=== PATIENT | female | born 1980 | race Caucasian/White ===

== ENCOUNTER 2016-10-07 21:21 | Observation (INO) ==
[2016-10-07] MEDS ORDERED: 0.9 % Sodium Chloride 1,000 ML IVC ONE ×2 (21:48→22:36)
--- NOTE | 2016-10-07 21:53 | Emergency Department Note ---
Disposition Clinical Impression: Abnormal EKG, Pleuritic chest pain, Menorrhagia Syncope Qualifiers: Syncope type: unspecified Qualified Code(s): R55 - Syncope and collapse Disposition: Admitted As Inpatient Condition: Fair Referrals: NONE,PCP [Non-Partnered Physician] - Forms: ED Satisfaction Letter General Adult HPI - General Chief complaint: ED Chest Pain Stated complaint: weakness/chest pain Time Seen by Provider: 10/07/16 21:38 Source: patient Limitations: no limitations Vital Signs Reviewed: Yes - History of Present Illness HPI Narrative: Patient presents with left upper pleuritic (sharp, worse with a deep breath) chest pain that is still present but has decreased in intensity, associated with multiple syncopal episodes over the last few hours. She feels weak. Is currently menstruating, has had heavy periods for the last several months, which is why she says she is on control pills and iron replacement. No symptoms of GI bleeding. No hemoptysis or other abnormal bleeding. No history of similar chest pain in the past. No history of coronary disease. She had a cardiomyopathy that she says was related to her thyroid disease that resolved with her thyroid disease was treated. 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 Has a history of thyroid cancer and a relatively distant past, no recent therapy, has been in remission for several years. No recent travel, trauma or surgery. No lower extremity pain or swelling. No exertional component. She does get dizzy when she sits up. No vomiting or diarrhea, po intake has been normal. Pain Scale: 8 - Related Data Home Medications Medication Instructions Recorded Confirmed Calcitriol [Rocaltrol] 0.25 mcg PO BID 04/27/15 04/27/15 Calcium Carbonate/Vitamin D3 2 tab PO DAILY 04/27/15 04/27/15 [Calcium 500-Vit D3 400 Tablet] Ergocalciferol (VITAMIN D2) 50,000 unit PO QWEEK 04/27/15 04/27/15 [Vitamin D2 (50,000 UNIT)] FLUoxetine HCl [Prozac] 20 mg PO DAILY 04/27/15 04/27/15 Furosemide [Lasix] 20 mg PO DAILY 04/27/15 04/27/15 Levothyroxine [Synthroid] 350 mcg PO DAILY 04/27/15 04/27/15 Previous Rx's Medication Instructions Recorded Meclizine [Antivert] 12.5 mg PO TID PRN #30 tablet 04/28/15 Topiramate [Topiramate ER] 25 mg PO DAILY #14 cap.spr.24 04/28/15 Meclizine [Antivert] 12.5 mg PO TID #30 tablet 12/10/15 HYDROcodone/Acet 5/325 mg [[place] 1 tab PO Q6H PRN #10 tab 07/30/16 5-325 mg] Ondansetron ODT [Zofran ODT] 4 mg SL Q8HR #14 tab.rapdis 07/30/16 Ibuprofen [Motrin] 600 mg PO Q6HR PRN 7 Days 08/01/16 Oxycodone HCl/Acetaminophen 1 each PO Q6HR #8 tablet 08/01/16 [Percocet 5-325 mg Tablet] Cephalexin [Keflex] 500 mg PO Q6HR #40 capsule 08/03/16 Oxycodone HCl/Acetaminophen 1 each PO Q6HR #10 tablet 08/03/16 [Percocet 5-325 mg Tablet] Allergies Allergy/AdvReac Type Severity Reaction Status Date / Time No Known Allergies Allergy Verified 07/31/16 21:59 All systems ED: reviewed and negative except as stated. Past Medical History - Past Medical History Medical history: Reports: cancer, CHF, migraine, thyroid disease, other (No history of DVT or PE) Surgical history: Reports: , thyroidectomy Psychiatric history: Reports: anxiety, depression - Social History Smoking Status: Never smoker Smokeless Tobacco Status: No Alcohol use: Reports: none Drug use: Reports: none Physical Exam - General Limitations: no limitations General appearance: alert - Head Head exam: atraumatic, normocephalic, normal inspection - Eye Eye exam: Present: normal appearance, other (Conjunctiva pink.) - ENT ENT exam: other (Mucous membranes paste E. Dentition poor.) - Neck Neck exam: Present: normal inspection, other (No JVD.) - Chest Chest inspection: Present: normal inspection, symmetric chest wall rise - Respiratory Respiratory exam: Present: normal lung sounds bilaterally. Absent: respiratory distress, wheezes, stridor, accessory muscle use, prolonged expiratory phase - Cardiovascular Cardiovascular exam: Present: normal rhythm (Mildly tachycardic, rate [id number]), normal heart sounds. Absent: systolic murmur, diastolic murmur - Abdominal Exam Abdominal exam: Present: soft, Non-Tender. Absent: distention, guarding - Extremities Exam Extremities exam: Present: normal inspection, other (No erythema, warmth or unilateral leg swelling). Absent: tenderness, calf tenderness - Neurological Exam Neurological exam: Present: alert, CN II-XII intact (Grossly), other (Speech and mental status normal, no focal deficits or lateralizing signs) - Psychiatric Psychiatric exam: Present: normal affect, normal mood - Skin Skin exam: Present: warm, dry, intact. Absent: rash Course Vital Signs Temperature 98.6 F 10/07/16 21:27 Pulse Rate 98 10/07/16 21:27 Respiratory Rate 20 10/07/16 21:27 Blood Pressure 129/87 10/07/16 21:27 O2 Sat by Pulse Oximetry 95 10/07/16 21:27 Temperature 98.6 F 10/07/16 21:27 Pulse Rate 82 10/07/16 23:38 Respiratory Rate 16 10/07/16 23:38 Blood Pressure 148/86 10/07/16 23:38 O2 Sat by Pulse Oximetry 96 10/07/16 23:38 Oxygen Delivery Oxygen Delivery Room Air Medical Decision Making - MDM Narrative Medical decision making narrative: Hemoglobin normal. Clinical suspicion for PE was low but d-dimer significantly elevated so CT scan was ordered which was negative. Troponin negative. TSH is low, likely indicating supratherapeutic Synthroid therapy. Remainder of her thyroid panel is pending, but I do not think this is the source of her symptoms. She has multiple syncopal episodes with abnormal EKG, observation and cardiac monitoring is warranted. Hospitalist contacted for admission. - Lab Data Result diagrams: 10/07/16 21:49 10/07/16 21:49 Lab Results 10/07/16 10/07/16 10/07/16 Range/Units 21:49 21:49 21:49 Hgb 13.4 (11.5-15.4) g/dL Hct 41.4 (35.3-44.9) % PT 11.8 (9.4-12.1) Seconds INR 1.1 D-Dimer 1290 H (0-500) ng/mLFEU Sodium 142 (136-145) mEq/L Potassium 3.2 L (3.5-4.5) mEq/L Chloride 107 (98-109) mEq/L Carbon Dioxide 26 (19-29) mEq/L BUN 12 (7-20) mg/dL Creatinine 1.15 H (0.57-1.11) mg/dL Est GFR ( Amer) > 60 (> 60) Est GFR (Non-Af Amer) 53 L (> 60) BUN/Creatinine Ratio 10 (6-26) Glucose 110 H (70-99) mg/dL Calculated Osmolality 294 (280-300) Calcium 11.7 H (8.6-10.8) mg/dL Troponin I (0-0.03) ng/mL TSH (0.350-4.840) mcIU/mL Free T4 (0.70-1.48) ng/dl Thyroxine (T4) (4.87-11.72) mcg/dL Free T3 (1.71-3.71) pg/mL Total T3 (0.58-1.59) ng/mL 10/07/16 10/07/16 Range/Units 21:49 21:49 Hgb (11.5-15.4) g/dL Hct (35.3-44.9) % PT (9.4-12.1) Seconds INR D-Dimer (0-500) ng/mLFEU Sodium (136-145) mEq/L Potassium (3.5-4.5) mEq/L Chloride (98-109) mEq/L Carbon Dioxide (19-29) mEq/L BUN (7-20) mg/dL Creatinine (0.57-1.11) mg/dL Est GFR ( Amer) (> 60) Est GFR (Non-Af Amer) (> 60) BUN/Creatinine Ratio (6-26) Glucose (70-99) mg/dL Calculated Osmolality (280-300) Calcium (8.6-10.8) mg/dL Troponin I 0.00 (0-0.03) ng/mL TSH 0.027 L (0.350-4.840) mcIU/mL Free T4 1.28 (0.70-1.48) ng/dl Thyroxine (T4) 10.89 (4.87-11.72) mcg/dL Free T3 2.37 (1.71-3.71) pg/mL Total T3 1.05 (0.58-1.59) ng/mL - EKG Data EKG #1 EKG shows normal: sinus rhythm (Rate 98, normal intervals and QRS duration. No signs of right heart strain. Nonspecific T-wave flattening is present.)
[2016-10-07 21:58] LABS: Hematocrit 41.4 % (35.3-44.9); Hemoglobin 13.4 g/dL (11.5-15.4)
[2016-10-07 22:03] LABS: INR 1.1; Prothrombin Time 11.8 Seconds (9.4-12.1)
[2016-10-07 22:13] LABS: BUN/Creatinine Ratio 10 (6-26); Blood Urea Nitrogen 12 mg/dL (7-20); Calcium 11.7 mg/dL (8.6-10.8); Carbon Dioxide 26 mEq/L (19-29); Chloride 107 mEq/L (98-109); Glucose 110 mg/dL (70-99); Osmolality,Calculated 294 (280-300); Potassium 3.2 mEq/L (3.5-4.5); Sodium 142 mEq/L (136-145); eGFR For African Americans > 60 (> 60); eGFR For Non-African Americans 53 (> 60)
[2016-10-07 22:35] LABS: Thyroid Stimulating Hormone 0.027 mcIU/mL (0.350-4.840)
[2016-10-07 23:56] LABS: Triiodothyronine (T3) Free 2.37 pg/mL (1.71-3.71); Triiodothyronine (T3) Total 1.05 ng/mL (0.58-1.59)
[2016-10-08] MEDS ORDERED: Ondansetron 4 MG/2 ML VIAL IVP PRN (01:17)
[2016-10-08] MEDS ORDERED: Naloxone 0.4 MG/ML INJ IVP PRN (01:17)
[2016-10-08] MEDS ORDERED: Acetaminophen 325 MG TABLET PO PRN (01:17)
--- NOTE | 2016-10-08 01:21 | Internal Med History&Physical ---
<Jose Armando Marmolejo - Last Filed: 10/08/16 02:38> Date of Encounter: 10/08/16 Time of Encounter: 00:30 Assessment and Plan (1) Syncope Current visit: Yes Status: Acute - Differential include vasovagal, orthostatic hypotension, medications ( including drug), cardiogenic such as arrhythmia, significant valvular dysfunction, CT, PE (unlikely given negative CTA chest) - Echo from 07/26/16 found LVEF 55% with mild LV diastolic dysfunction and mild aortic regurgitation. - Will check orthostatic vital signs and UDS. - Closely monitor with telemetry and trend troponin. - Given reported recent head trauma from syncope, will also obtain CT head. - Continue hydration with IV fluid. Qualifiers: Syncope type: unspecified Qualified Code(s): R55 - Syncope and collapse (2) SAL (acute kidney injury) Current visit: Yes Status: Acute - SCr 1.15 on admission, which is elevated compared to 0.81 on 08/03/16. - Maybe secondary to hypovolemia given patient reports decreased oral intake. - Continue rehydration with IV fluid. - Avoid nephrotoxin. - Continue to monitor renal function and electrolytes. (3) History of thyroid cancer Current visit: No Status: Chronic - History of papillary thyroid carcinoma s/p throidectomy. - On Synthroid at home. Likely supratherapeutic given low TSH. (4) Hypokalemia Current visit: Yes Status: Acute - K 3.2 on admission. - Will give KCl 40 meq x1. - Also check Mg. - Continue to monitor. (5) Pleuritic chest pain Current visit: Yes Status: Acute - Most likely musculoskeletal given it's pleuritic and reproducible on palpation. - Doubt CT given negative troponin and no significant ischemic change on EKG. - CTA chest negative for PE. - Tylenol prn pain. Internal Medicine - H&P: HPI Chief complaint: Syncope Admitted From: Emergency Dept Plans for Post Hospital Care: Home History of present illness: Ms. Machuca is a 36 year old female with history of papillary thyroid carcinoma s /p thyroidectomy and history of thyroid-associated non-ischemic cardiomyopathy ( per patient, that had been cleared by Dr. Gomez of [facility] 2 years ago) . Patient presented to [facility] ED after having 3 episodes of syncopes within 1/2 hours. Patient reports having nausea and worsening dizziness described as room spinning prior to syncopal episodes. Those occurred mostly when she was sitting. Patient denies vision change, chest pain or palpitation prior to syncopal episodes. Patient does report worsening tinnitus recently but denies decreased hearing. Patient also reports headache and recalls hitting the back of her head when she had a syncopal episode on 10/06/16. Patient denies numbness/ tingling, focal weakness, fever, chills. Patient also complains of left upper pleuritic chest pain and shortness of breath but no cough. Patient also admits reduced oral intake recently. Patient was noted to have elevated d-dimer (1290) in ED but CTA chest found no evidence of PE. Patient received 2L of IV NS in ED. Past Med Surg Social Fam HX - Past Medical History Medical history: cancer, CHF, migraine, thyroid disease, other (No history of DVT or PE) Psychiatric history: anxiety, depression - Past Surgical History Surgical History: , thyroidectomy - Social History Smoking Status: Never smoker Smokeless Tobacco Status: No Alcohol use: none Drug use: none - Family History Mother Living Status: Hx Family Respiratory Disorders: Yes Father Name: Andrew Marcial Age: 60 Living Status: Still Living Hx Family Cardiac Disorders: Yes (HTN, possible CT) Hx Family Respiratory Disorders: No Hx Family Cancer: No Hx Family GI Disorders: No Hx Family Genitourinary Disorders: No Hx Family Endocrine Disorder: Yes (Possible DM) Hx Family Musculoskeletal Disorders: No Hx Family Neuromuscular Disorders: No Hx Family Neurologic Disorders: No Hx Family HEENT Disorders: No Hx Family Autoimmune Disorders: No Hx Family Reproductive Disorders: No Hx Family Psychosocial Disorders: No Hx Family Medical Disorders: No Internal Medicine - H&P: Meds Calcitriol [Rocaltrol] 0.25 mcg PO BID 04/27/15 [History] Calcium Carbonate/Vitamin D3 [Calcium 500-Vit D3 400 Tablet] 2 tab PO DAILY [History] Ergocalciferol (VITAMIN D2) [Vitamin D2 (50,000 UNIT)] 50,000 unit PO 2XW [History] FLUoxetine HCl [Prozac] 20 mg PO DAILY 04/27/15 [History] Levothyroxine [Synthroid] 350 mcg PO DAILY 04/27/15 [History] Ibuprofen [Motrin] 600 mg PO Q6HR PRN 7 Days 08/01/16 [Rx] FLUoxetine HCl [PROzac] 20 mg PO DAILY 10/08/16 [History] Ferrous Sulfate [Iron] 325 mg PO QMWF 10/08/16 [History] Norgestimate-Ethinyl Estradiol [Sprintec 28 Day Tablet] 1 each PO 10/08/16 [ History] Topiramate [Topiramate ER] 25 mg PO BID 10/08/16 [History] Wellbutrin 1 tab PO DAILY 10/08/16 [History] diazePAM [Valium] 1 tab PO HS 10/08/16 [History] Allergies No Known Allergies Allergy (Verified 07/31/16 21:59) All Systems PM: A 10-system review of systems was performed and is negative for pertinent findings except as documented above in the HPI. - Constitutional Constitutional: anorexia, fatigue, no chills, no fever(s) - EENT Eyes: no change in vision Ears: tinnitus, no decreased hearing Nose, mouth and throat: no dysphagia, no odynophagia - Cardiovascular Cardiovascular ROS IM: syncope, no edema, no palpitations - Respiratory Respiratory: pain on inspiration, no cough, no hemoptysis - Gastrointestinal Gastrointestinal: constipation, nausea, no hematochezia, no melena, no vomiting - Genitourinary Genitourinary: no difficulty urinating, no dysuria, no hematuria - Musculoskeletal Musculoskeletal ROS IM: no arthralgias, no myalgias - Integumentary Integumentary IM: no pruritus, no rash - Neurological Neurological ROS: no focal weakness, no numbness, no tingling - Hematologic/Lymphatic Hematologic/Lymphatic: no easy bleeding, no easy bruising - Constitutional Vitals: Temp Pulse Resp BP Pulse Ox 98.2 F 85 16 141/84 99 10/08/16 00:45 10/08/16 00:45 10/08/16 00:45 10/08/16 00:45 10/08/16 00:45 General appearance: Present: cooperative, A&O X 3, no acute distress, answers questions appropriately - Head Head exam: Present: atraumatic, normocephalic - Eye Eye exam: Present: EOMI, PERRL, conjuntiva pink, sclera anicteric - Neck Neck exam general surgery: Present: supple, trachea midline. Absent: lymphadenopathy - Respiratory Respiratory exam: Present: chest wall tenderness (left upper chest pain reproducible on palpation. ), decreased breath sounds. Absent: accessory muscle use, rales, rhonchi, wheezes - Cardiovascular Cardiovascular exam: Present: RRR, +S1, +S2. Absent: diastolic murmur, gallop, rubs, systolic murmur - GI/Abdominal GI/Abdominal exam: Present: normal bowel sounds, soft, tenderness (Mild bilateral lower quadrants), no peritoneal signs. Absent: distended - Extremities Exam Extremities exam: Present: warm, radial pulses palpable and symetrical. Absent : calf tenderness, cyanotic - Neurological Exam Neurological exam: Present: CN II-XII intact, oriented X3, no focal deficits. Absent: pronater drift, facial droop, speech deficit - Skin Skin exam: Present: dry, intact, warm Internal Med - H&P Results - Labs CBC & Chem 7: 10/07/16 21:49 10/07/16 21:49 <Damien Restrepo - Last Filed: 10/08/16 06:06> Date of Encounter: 10/08/16 Internal Medicine - H&P: HPI History of present illness: Ms. Machuca is a 36 year old female All Systems PM: A 10-system review of systems was performed and is negative for pertinent findings except as documented above in the HPI. - Constitutional Vitals: Temp Pulse Resp BP Pulse Ox 98.2 F 90 18 130/85 95 10/08/16 02:54 10/08/16 02:54 10/08/16 02:54 10/08/16 02:54 10/08/16 02:54 Internal Med - H&P Results - Labs CBC & Chem 7: 10/08/16 03:13 10/08/16 03:13 Labs: Short CBC 10/08/16 Range/Units 03:13 WBC 12.5 H (4.3-11.1) K/mcL Hgb 13.2 (11.5-15.4) g/dL Hct 40.4 (35.3-44.9) % Plt Count 316 (140-400) K/mcL BMP 10/08/16 03:13 Sodium 141 Potassium 3.0 L Chloride 109 Carbon Dioxide 24 BUN 14 Creatinine 1.09 Glucose 119 H Calcium 10.8 Cardiac Enzymes 10/08/16 Range/Units 03:13 Troponin I 0.00 (0-0.03) ng/mL - Attending Attestation I examined this patient and my medical decision-making was reviewed with the Resident Physician, Dr. Jose Armando Marmolejo. I agree with the documented findings, disposition and treatment plan as described except to the extent set forth below. I have independently obtained history and examined the patient and my findings are summarized below: Patient presented with multiple episodes of syncope. On exam she is in no acute distress. Heart is regular. Lungs are clear. EKG shows sinus tachycardia with nonspecific T-wave changes. Plan: Heart monitor. Trend troponin. Obtain echocardiogram. IV fluids for dehydration.
[2016-10-08] MEDS ORDERED: 0.9 % Sodium Chloride 1,000 ML IVC SCH (02:00)
[2016-10-08 03:24] LABS: Hematocrit 40.4 % (35.3-44.9); Hemoglobin 13.2 g/dL (11.5-15.4); Mean Corpuscular HGB Conc 32.7 g/dL (31.6-35.5); Mean Corpuscular Hemoglobin 27.8 pg (28.0-33.3); Mean Corpuscular Volume 85.1 fL (83.0-100.0); Mean Platelet Volume 11.7 fL (9.4-12.4); Platelet Count 316 K/mcL (140-400); Red Blood Count 4.75 M/mcL (3.82-4.97); Red Cell Distribution Width 15.9 % (11.5-14.5)
[2016-10-08 03:41] LABS: BUN/Creatinine Ratio 13 (6-26); Blood Urea Nitrogen 14 mg/dL (7-20); Calcium 10.8 mg/dL (8.6-10.8); Carbon Dioxide 24 mEq/L (19-29); Chloride 109 mEq/L (98-109); Glucose 119 mg/dL (70-99); Magnesium 1.8 mg/dL (1.6-2.6); Osmolality,Calculated 294 (280-300); Sodium 141 mEq/L (136-145); eGFR For African Americans > 60 (> 60); eGFR For Non-African Americans 56 (> 60)
[2016-10-08] MEDS ORDERED: WELLBUTRIN PO SCH (09:00)
--- NOTE | 2016-10-08 09:15 | Electrocardiograph Report ---
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
[2016-10-08] MEDS: FLUoxetine 20 MG CAPSULE PO SCH (09:38)
[2016-10-08] MEDS: Topiramate 25 MG TABLET PO SCH ×2 (09:38→21:02)
[2016-10-08] MEDS: BuPROPion SR (12 HR) 100 MG TABLET PO SCH ×2 (10:30→21:02)
[2016-10-08 10:47] LABS: Bilirubin,Urine Negative (Negative); Blood,Urine Trace (Negative); Clarity,Urine Cloudy (Clear); Color,Urine Yellow (Yellow); Glucose,Urine (UA) Normal (Normal); Ketones,Urine Negative (Negative); Leukocyte Esterase,Urine Negative (Negative); Nitrite,Urine Negative (Negative); PH,Urine 6.5 pH Units (5.0-8.0); Protein,Urine Negative (Neg-Trace); Specific Gravity,Urine 1.024 (1.010-1.025); Urobilinogen,Urine Normal (Normal)
[2016-10-08 11:58] LABS: Barbiturate Screen,Urine Negative ng/mL (Cutoff=200); Benzodiazepines Screen,Urine Positive ng/mL (Cutoff=200); Cannabinoid Screen,Urine Negative ng/mL (Cutoff = 50); Cocaine Screen,Urine Negative ng/mL (Cutoff= 300); Opiate Screen,Urine Negative ng/mL (Cutoff=300); Phencyclidine Screen,Urine Negative ng/mL (Cutoff=25)
[2016-10-08 12:01] LABS: Amphetamine Screen,Urine Negative ng/mL (Cutoff=1000)
--- NOTE | 2016-10-08 14:51 | Event Note ---
Date of Encounter: 10/08/16 Time of Encounter: 10:50 Patient was seen and assessed at 10:50 AM. and service dog were at bedside. Patient reports four syncopal episodes over the last 2 days.She states she had one syncopal episode 2 days ago, where she fell and hit her head. Has been says she was unconscious for about 30 seconds and that he "brought her back with a sternal rub." For this episode, patient was walking to her bedroom, luckily with the assistance of her said she did not feel well. She reports 3 syncopal episodes while seated yesterday. She said she just did not feel well all day. Patient denies chest pain, palpitations, shortness of breath, dizziness at this time. She said at the time of the event she had shortness of breath, the room was spinning, she was lightheaded and after the episodes she felt as if her heart was racing. She denies palpitations prior to events. She denies chest pain, nausea, vomiting, diaphoresis at time of events. She denies headaches or vision changes. She has had none of these events since arrival. Patient is alert and oriented 3, her speech is clear. She has no anterior or posterior cervical adenopathy, her neck is supple and nontender. S1-S2 is heard , RRR, no gallops, clicks, murmurs. Lung sounds are clear anteriorly and posteriorly. Abdomen soft, nontender, bowel sounds present. There is no peripheral edema. Patient is able to ambulate in the hallway with her service dog. Patient states that when her TSH is low, she goes into congestive heart failure. I draw a BNP today, it is less than 10. Patient had an elevated d- dimer, chest CT was negative for PE. Is evidence of chronic granulomatous disease, with nonspecific mosaic attenuation of the lungs. Chest x-ray was negative for any acute cardiopulmonary abnormality. EKG was sinus rhythm with ventricular rate of 98, OK interval 165, QRS is 98, QTC 402. Patient is chest pain-free, she denies ever having chest pain. Echocardiogram in Jul, 2016 shows LVEF of 55% with normal systolic function. Evidence of mild diastolic dysfunction with mild AR and no pulmonary hypertension. Patient had a limited echo in January,. He remains basically unchanged. Patient does have mildly elevated white count at 12.5. H&H are within normal limits. Again, the d-dimer was 1290. Potassium is 3.2 on admission, 3.0 this morning. She has been given potassium supplementation by mouth. On admission creatinine was 1.15, it has returned to normal, GFR has improved to 56 from 53. Urine is negative other than a trace of blood. Drug screen positive for benzos. Patient takes Valium at home. It has been held here by admitting physician. Due to patient's report of falling and hitting her head, she had a head CT done that showed no acute intracranial abnormality. I will keep patient overnight and have ordered carotids. Patient has had no syncopal episodes since arrival. She is a patient of Dr. Gomez, however she is not seen him for at least 2 years. We will consider an event monitor on discharge if other tests are negative.
--- NOTE | 2016-10-08 21:55 | Carotid Imaging Report ---
Carotid Duplex Patient Name:Maye Machuca Order Number:[id number] Procedure Date:10/08/2016 Date:1980Age:36 yrs Gender:Female Rt.BP:121 / 75 mmHgHeart Rate: Location:[facility] Room #: 3B31 Sales Planner:aSdie Lilly, RDCS Referring MD:Hyacinth Donahue RN X RAY threshing operator:Diana Sotelo DO Reading MD:Rommel Almaguer MD , FACS Primary Indications:Syncope and collapse Impressions: Findings: Bilateral carotid systems are essentially normal. Findings Carotid Duplex: Santiago scale imaging combined with Doppler flow analysis suggests normal findings bilaterally. Right: The right proximal common carotid artery has a PSV of 78 cm/s and a EDV of 13 cm/s. The right mid common carotid artery has a PSV of 100 cm/s and a EDV of 21 cm/s. The right distal common carotid artery has a PSV of 101 cm/s and a EDV of 23 cm/s. The right bifurcation has a PSV of 82 cm/s and a EDV of 20 cm/s. The right proximal internal carotid artery has a PSV of 82 cm/s and a EDV of 22 cm/s. The right mid internal carotid artery has a PSV of 80 cm/s and a EDV of 21 cm/s. The right distal internal carotid artery has a PSV of 65 cm/s and a EDV of 18 cm/s. The right eca has a PSV of 121 cm/s and a EDV of 14 cm/s. The right vertebral artery has a PSV of 57 cm/s and a EDV of 18 cm/s. There is antegrade spectral Doppler flow patterns. Left: The left proximal common carotid artery has a PSV of 118 cm/s and a EDV of 23 cm/s. The left mid common carotid artery has a PSV of 106 cm/s and a EDV of 25 cm/s. The left distal common carotid artery has a PSV of 80 cm/s and a EDV of 24 cm/s. The left bifurcation has a PSV of 61 cm/s and a EDV of 17 cm/s. The left proximal internal carotid artery has a PSV of 79 cm/s and a EDV of 17 cm/s. The left mid internal carotid artery has a PSV of 51 cm/s and a EDV of 23 cm/s. The left distal internal carotid artery has a PSV of 70 cm/s and a EDV of 32 cm/s. The left eca has a PSV of 117 cm/s and a EDV of 15 cm/s. The left vertebral artery has a PSV of 64 cm/s and a EDV of 20 cm/s. There is antegrade spectral Doppler flow patterns. Prior Study: No prior study available for comparison. Carotid Results Right PSV EDV Assessment ECA 121 14 Vertebral Artery 57 18 Antegrade Flow Proximal CCA 78 13 Mid CCA 100 21 Distal CCA 101 23 Bifurcation 82 20 Proximal ICA 82 22 Mid ICA 80 21 Distal ICA 65 18 Left PSV EDV Assessment Proximal CCA 118 23 Mid CCA 106 25 Distal CCA 80 24 Bifurcation 61 17 Proximal ICA 79 17 Mid ICA 51 23 Distal ICA 70 32 ECA 117 15 Vertebral Artery 64 20 Antegrade Flow Ratio's Right ICA/CCA Ratio: 0.82 ICA/CCA Values: 82/100 Left ICA/CCA Ratio: 1.54 ICA/CCA Values: 79/51 Updated by Rommel Almaguer MD, FACS on 10/08/2016 9:50:39 PM Rommel Almaguer MD electronically signed on 10/08/2016 9:51:09 PM with status of Final
[2016-10-09 04:21] LABS: Basophils # 0.1 K/mcL (0.0-0.2); Basophils % 0.4 %; Eosinophils # 0.4 K/mcL (0.0-0.6); Eosinophils % 3.1 %; Hematocrit 36.9 % (35.3-44.9); Immature Granulocytes % 0.3 % (0-4); Lymphocytes # 3.1 K/mcL (0.6-4.6); Lymphocytes % 27.4 %; Mean Corpuscular HGB Conc 31.2 g/dL (31.6-35.5); Mean Corpuscular Hemoglobin 26.7 pg (28.0-33.3); Mean Corpuscular Volume 85.8 fL (83.0-100.0); Mean Platelet Volume 11.2 fL (9.4-12.4); Monocytes # 0.8 K/mcL (0.0-1.3); Monocytes % 6.8 %; Platelet Count 290 K/mcL (140-400); Red Cell Distribution Width 15.9 % (11.5-14.5)
[2016-10-09 04:22] LABS: Hemoglobin 11.5 g/dL (11.5-15.4)
[2016-10-09 04:41] LABS: BUN/Creatinine Ratio 13 (6-26); Blood Urea Nitrogen 12 mg/dL (7-20); Carbon Dioxide 24 mEq/L (19-29); Chloride 112 mEq/L (98-109); Glucose 103 mg/dL (70-99); Osmolality,Calculated 296 (280-300); Potassium 4.1 mEq/L (3.5-4.5); Sodium 143 mEq/L (136-145); eGFR For African Americans > 60 (> 60); eGFR For Non-African Americans > 60 (> 60)
[2016-10-09 07:48] VITALS: BP 166/67
--- NOTE | 2016-10-09 08:36 | Discharge Summary ---
Date of Encounter: 10/09/16 Time of Encounter: 08:25 - Discharge Diagnosis (1) Syncope Priority: Primary Status: Acute Comments: Pt reports 4 syncopal episodes prior to arrival. She has had none since. She reports that the first one was while walking, she fell and hit her head. The other 3 episodes were while seated. She states that she felt like her heart was racing after episodes. All testing to date has been negative. Carotids done last evening were normal. Head CT and chest CTA both negative for acute findings. Troponins were negative. TSH is low and pt states that her PCP, Dr. Sotelo, manages all of her doseage changes. Prior echo from July showed preserved function with mild LV dysfunction and mild AR. Most likely due to dehydration, hypovolemia, rapid position change. Pt will be instructed to hydrate and change positions slowly and she will have a follow up appointment with PCP on 10/15/16. She has been hydrated with IV fluids and has had no subsequent episodes. I am ordering a holter monitor with results to PCP. Head CT 10/08/16 08:00 IMPRESSION: No acute intracranial abnormality. D/ / Timmy Irizarry MD / Timmy Irizarry MD Interpreting Provider: Timmy Irizarry MD Qualifiers: Syncope type: unspecified Qualified Code(s): R55 - Syncope and collapse (2) History of thyroid cancer Priority: Secondary Status: Chronic Comments: Pt has history of thyroid carcinoma s/p thyroidectomy. TSH is low. Pt will see Dr. Sotelo on 10/15 and will discuss doseage adjustment. (3) Pleuritic chest pain Priority: Secondary Status: Resolved Comments: Resolved. Pt denies any chest pain today. Chest X-Ray 10/07/16 21:26 IMPRESSION: No acute cardiopulmonary abnormality. D/ / Misbah Quintanilla MD / Misbah Quintanilla MD Interpreting Provider: Misbah Quintanilla MD Chest CTA 10/07/16 22:35 IMPRESSION: No PE identified. Evidence of chronic granulomatous disease. Nonspecific mosaic attenuation of the lungs D/ / Ramses Zhang MD / Ramses Zhang MD Interpreting Provider: Ramses Zhang MD (4) SAL (acute kidney injury) Priority: Secondary Status: Resolved Comments: Renal function has returned to normal. (5) DVT prophylaxis Priority: Secondary Status: Acute Comments: Pt is ambulatory in room. Observation status. (6) Morbid obesity with BMI of 40.0-44.9, adult Priority: Secondary Status: Chronic Comments: Chronic. Lifestyle changes - Discharge Medications Home Medications: Calcitriol [Rocaltrol] 0.5 mcg PO BID 04/27/15 [History] Ergocalciferol (VITAMIN D2) [Vitamin D2 (50,000 UNIT)] 50,000 unit PO 2XW [History] Levothyroxine [Synthroid] 300 mcg PO DAILY 04/27/15 [History] Ibuprofen [Motrin] 600 mg PO Q6HR PRN 7 Days 08/01/16 [Rx] BuPROPion SR (12 HR) [Wellbutrin SR] 100 mg PO BID 10/08/16 [History] Calcium Carbonate [Calcium] 1,000 mg PO BID 10/08/16 [History] FLUoxetine HCl [Prozac] 20 mg PO DAILY 10/08/16 [History] Ferrous Sulfate [Iron] 325 mg PO QMWF 10/08/16 [History] Norgestrel-Ethinyl Estradiol [Xxc-Qdxvpilb-81 Tablet] 1 tab PO DAILY 10/08/16 [ History] Pnv with Ca,No.72/Iron/FA [Pnv Plus Multivit Tab] 1 tab PO DAILY [History] Topiramate [Topiramate ER] 25 mg PO BID 10/08/16 [History] diazePAM [Valium] 2 tab PO BID 10/08/16 [History] Allergies/Adverse Reactions: Allergies No Known Allergies Allergy (Verified 07/31/16 21:59) Procedures/tests Complete & Pending: Procedures Performed prior 72 hours Category Date Time Status CT head/brain wo con [CT] Routine Cat Scan 10/08/16 08:00 Completed EV carotid duplex imaging BI Routine Y 10/08/16 14:19 Completed Date of admission: 10/08/16 00:13 Primary care physician: Earl Shoemaker Discharging clinician: Hyacinth Donahue Anticipated date of discharge: 10/09/16 - Patient Status Disposition: Home, Self-Care Condition: Good Functional capacity at discharge: independent ambulation Overall status at discharge: patient is back to baseline - Discharge Instructions Follow Up With: Diana Sotelo DO [Primary Care Provider] - Additional Instructions: Follow up with Dr. Sotelo on October 15 as scheduled. Holter monitor results will go to Dr. Sotelo when they are complete. Return to your normal activities as you feel well enough to do so. Make sure that you are drinking plenty of fluids and changing positions slowly. Take your medications as you normally would. Return to the ER for any other problems or concerns or if your symptoms return or worsen. - Diet and Activity Activity: increase activity as tolerated Diet: advance to your usual diet Hospital course: Ms. Machuca is a 36 year old female presents with her service dog with past medical history of migraines, nonischemic cardiomyopathy, history of thyroid cancer, hypoparathyroidism, morbid obesity who presented to the emergency department and was admitted on October 08. She presented with poor syncopal episodes over 2 days. One while walking when she fell and hit her head. The next day 3 while seated. Most likely orthostatic hypotension due to decreased fluid intake and evidence of SAL on admission. Patient reports she was unconscious for about 30 seconds and was arousable to sternal rub by her . When she was walking, she was with her who is helping her bed since she was not feeling well. She denies chest pain, palpitations, shortness of breath, dizziness during her stay. At the time in the event she had shortness of breath, the room was spinning, she was lightheaded, and after the episode she felt like her heart was racing. She denies chest pain, dizziness, or palpitations prior to the event. She denies nausea, vomiting, diaphoresis at the time of the event as well. She denies headache or vision changes and has had none since arrival. Her EKG on admission was sinus rhythm with a rate of 98, DC interval 165, QRS 98 , QTc 42. She was chest free and remained chest pain-free. She tells me that she did not ever have chest pain. Echocardiogram in Jul, 2016 shows LVEF of 55 % with normal systolic function. There is evidence of mild diastolic dysfunction with mild AR and no pulmonary hypertension. She had an echocardiogram in January, was essentially the same. Patient had mild leukocytosis during admission, white count has decreased today and is most likely reactive and is declining. She had an elevated d-dimer of 1290 on arrival, chest CTA was negative for PE. Potassium was 3.2 on admission and has resolved with by mouth potassium supplementation. Patient had mild SAL on arrival with a creatinine of 1.15, renal function has returned to within normal limits. Her urine was negative other than a trace of blood. Her drug screen was positive for benzodiazepines which may be a contributory factor to her syncope with hypovolemia. Her head CT without contrast that was done due to possible head injury after fall, showed no acute intracranial abnormality. Carotid Dopplers were also essentially normal. Patient is status post thyroidectomy due to thyroid carcinoma. Her TSH is low and she states that her primary care physician regulates all of her thyroid medication. Patient is going have a Holter monitor placed for 48 hours prior to discharge. Results will go to her primary care physician. We have scheduled a follow-up appointment for October 15 with her primary care physician, Dr. Sotelo. Vital signs are stable. Labs are within normal limits. Patient denies pain, dizziness, headache, or syncopal episodes since the ones prior to admission. Patient is ready and stable for discharge. - Time Spent with Patient Total time spent providing and/or coordinating discharge services: Less than 30 minutes - Constitutional Vitals: Temp Pulse Resp BP Pulse Ox 97.8 F 84 17 166/67 98 10/09/16 07:43 10/09/16 07:43 10/09/16 07:43 10/09/16 07:43 10/09/16 07:43 General appearance: Present: cooperative, A&O X 3, morbidly obese, no acute distress, answers questions appropriately - Head Head exam: Present: normal inspection - Eye Eye exam: Present: normal appearance, conjuntiva pink - ENT ENT exam: Present: mucous membranes moist, normal exam, normal external ear exam - Neck Neck exam general surgery: Present: normal inspection. Absent: lymphadenopathy , tenderness - Respiratory Respiratory exam: Present: CTAB. Absent: chest wall tenderness, rales, respiratory distress, rhonchi, wheezes - Cardiovascular Cardiovascular exam: Present: RRR, +S1, +S2. Absent: clicks, diastolic murmur, gallop, systolic murmur - GI/Abdominal GI/Abdominal exam: Present: distended, normal bowel sounds, soft. Absent: hepatomegaly, tenderness - Extremities Exam Extremities exam: Present: normal inspection, warm, radial pulses palpable and symetrical. Absent: pedal edema, tenderness - Neurological Exam Neurological exam: Present: alert, oriented X3, no focal deficits. Absent: altered, motor sensory deficit, facial droop, speech deficit - Skin Skin exam: Present: dry, intact, normal color, warm
[2016-10-09] MEDS: FLUoxetine 20 MG CAPSULE PO SCH (09:02)
[2016-10-09] MEDS: BuPROPion SR (12 HR) 100 MG TABLET PO SCH (09:03)
[2016-10-09] MEDS: Topiramate 25 MG TABLET PO SCH (09:03)
--- NOTE | 2016-10-14 15:03 | Holter Monitor Report ---
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 [address] Monitor Duration: 48 Indications: Palpitations Recording Time: 47:49 Time Analyzed: 47:24 Quality of Tracing: good Diary: yes Description of symptoms: yes There were 547903 total beats, including ectopy. Average HR was 88. Minimum HR of 65 occurred at 22:50D1 and maximum HR of 163 occurred at 13:41D2. Ventricular Ectopy consisted of 0 total beats. Supraventricular Ectopy consisted of 34 total beats averaging 0.7 per hour. There were 32 single PACs, 2 paired PACs, and 0 runs of SVT. There is 0 evidence of any pauses. Impression: 1. Baseline rhythm normal sinus. 2. Occasional PACs. 3. Symptoms correlate with sinus tachycardia. Electronically Signed On 10-12-2016 11:18:33 EDT by Shmuel Villatoro
== END 2016-10-09 11:30 | disposition home or self-care (01) ==
LOC: EMEROO 21:21 → 3BNU 21:21
PROVIDERS: ADMIT Internal Medicine; ATTEND Nurse Practitioner Family

== ENCOUNTER 2016-10-10 15:19 | Observation (INO) ==
[2016-10-10 16:05] LABS: Basophils # 0.1 K/mcL (0.0-0.2); Basophils % 0.5 %; Eosinophils % 1.4 %; Hematocrit 39.5 % (35.3-44.9); Hemoglobin 12.9 g/dL (11.5-15.4); Immature Granulocytes % 0.4 % (0-4); Lymphocytes # 3.5 K/mcL (0.6-4.6); Lymphocytes % 19.7 %; Mean Corpuscular HGB Conc 32.7 g/dL (31.6-35.5); Mean Corpuscular Hemoglobin 27.2 pg (28.0-33.3); Mean Corpuscular Volume 83.2 fL (83.0-100.0); Mean Platelet Volume 11.3 fL (9.4-12.4); Monocytes # 1.1 K/mcL (0.0-1.3); Neutrophils # 12.6 K/mcL (1.6-8.9); Platelet Count 359 K/mcL (140-400); Red Blood Count 4.75 M/mcL (3.82-4.97); Red Cell Distribution Width 15.9 % (11.5-14.5)
[2016-10-10 16:06] LABS: Eosinophils # 0.3 K/mcL (0.0-0.6)
[2016-10-10] MEDS ORDERED: Aspirin 81 MG TAB.CHEW PO ONE (16:09)
--- NOTE | 2016-10-10 16:12 | Emergency Department Note ---
Disposition Clinical Impression: Abnormal EKG Chest pain Qualifiers: Chest pain type: unspecified Qualified Code(s): R07.9 - Chest pain, unspecified Disposition: Admitted As Inpatient Condition: Fair Forms: ED Satisfaction Letter Time of Disposition: 17:09 Chest Pain HPI - General Chief Complaint: ED Shortness of Breath/Dyspnea Stated Complaint: CP Time Seen by Provider: 10/10/16 15:51 Source: patient Limitations: no limitations Vital Signs Reviewed: Yes Nursing Notes Reviewed: Yes - History of Present Illness HPI Narrative: 36-year-old female presents hx of Hypothyroid with chest pain shortness of breath and near syncope. Patient has a history of hypothyroidism has been supratherapeutic on her Synthroid recently decreased to 300mcg. patient states that she was seen a couple days ago, records review shows that she had a CTA of her chest and a head CT that were negative for pulmonary embolus or ICH. Patient reports 8 out of 10 crushing chest pain, so she with some diaphoresis and nausea. Near syncope. This happened when she was driving about 3 hours prior to arrival. Pt complaint: chest pain Onset (ago): hour(s) (3) Duration: intermittent Onset: during rest Pain Location: substernal Severity: moderate, severe Severity scale (1-10): 9 Quality: aching Pain Radiation: none Improves with: nothing Worsens with: inspiration Associated symptoms: Reports: nausea, vomiting, dyspnea Treatments prior to arrival chest pain: none - Related Data Home Medications Medication Instructions Recorded Confirmed Calcitriol [Rocaltrol] 0.5 mcg PO BID 04/27/15 10/10/16 Ergocalciferol (VITAMIN D2) 50,000 unit PO 2XW 04/27/15 10/10/16 [Vitamin D2 (50,000 UNIT)] Levothyroxine [Synthroid] 300 mcg PO DAILY 04/27/15 10/10/16 BuPROPion SR (12 HR) [Wellbutrin 100 mg PO BID 10/08/16 10/10/16 SR] Calcium Carbonate [Calcium] 1,000 mg PO BID 10/08/16 10/10/16 FLUoxetine HCl [Prozac] 20 mg PO DAILY 10/08/16 10/10/16 Ferrous Sulfate [Iron] 325 mg PO QMWF 10/08/16 10/10/16 Norgestrel-Ethinyl Estradiol 1 tab PO DAILY 10/08/16 10/10/16 [Via-Yogadfpq-54 Tablet] Pnv with Ca,No.72/Iron/FA [Pnv 1 tab PO DAILY 10/08/16 10/10/16 Plus Multivit Tab] diazePAM [Valium] 2 mg PO BID 10/08/16 10/10/16 Ibuprofen [Motrin] 400 mg PO Q6HR PRN 10/10/16 10/10/16 Topiramate [Topiramate] 50 mg PO BID 10/10/16 10/10/16 Allergies Allergy/AdvReac Type Severity Reaction Status Date / Time No Known Allergies Allergy Verified 07/31/16 21:59 Review of Systems: 10 Point ROS was performed and negative except as per below or as documented in HPI. Constitutional: Denies: fever Eyes: Denies: eye pain ENT: Denies: nasal congestion CV: +CP Denies: chest pain Resp: Denies: hemoptysis GI: Denies: abdominal pain, hematochezia Denies: dysuria, hematuria MSK: Denies: back pain, neck pain, extremity pain Skin: Denies: new rashes Neuro: Denies: paresthesias or weakness All systems ED: reviewed and negative except as stated. Chest Pain PMH - Past Medical History Medical history: Reports: cancer, CHF, migraine, thyroid disease, other Surgical history: Reports: , thyroidectomy Psychiatric history: Reports: anxiety, depression - Social History Smoking Status: Never smoker Alcohol use: Reports: none Drug use: Reports: none Physical Exam Constitutional: obese female, Appears uncomfortable. vss Eyes: PERRLA, sclera anicteric Neck: normal inspection, neck is supple Resp: CTA bilaterally, no resp distress CV: RRR, no m/g/r GI: normal inspection, soft, no guarding or rigidity Back: normal inspection, no tenderness to palpation Neuro: A&O3, CNII-XII grossly intact, PÉREZ MSK: no gross deformities, normal ROM UE and LE Skin: on limited exam, skin intact with no rashes or lesions - General Limitations: no limitations Course Course Narrative: 28-year-old female with crushing chest pain, nitroglycerin trial aspirin given, patient's EKG shows sinus tachycardia she recently was CTA which was negative for pulmonary embolus. Given risk factors of obesity, no recent stress test, would pursue admission if she has negative troponin for chest pain rule out - Reevaluation(s) Reevaluation #1: I spoke with Dr. aVn he will admit the patient to her service, patient's hemodynamic symptomatically stable with a troponin of 0, a nitro glycerin did not improve her chest pain significantly. We will repeat EKG. Time: 17:00 Vital Signs Temperature 98.1 F 10/10/16 15:20 Pulse Rate 120 10/10/16 15:20 Respiratory Rate 22 10/10/16 15:20 Blood Pressure 133/86 10/10/16 15:20 O2 Sat by Pulse Oximetry 97 10/10/16 15:20 Temperature 98.1 F 10/10/16 15:20 Pulse Rate 97 10/10/16 16:33 Respiratory Rate 18 10/10/16 16:33 Blood Pressure 124/72 10/10/16 16:33 O2 Sat by Pulse Oximetry 96 10/10/16 16:33 Oxygen Delivery Oxygen Delivery Room Air Chest Pain - Differential Diagnosis Likely: unstable angina pectoris, st elevation myocardial infraction - Medical Records Medical records reviewed: Yes I reviewed the patient's medical records. - Lab Data Lab results reviewed: Yes I reviewed the patient's lab results. Result diagrams: 10/10/16 15:59 10/10/16 15:59 Lab Results 10/10/16 10/10/16 10/10/16 Range/Units 15:59 15:59 15:59 WBC 17.5 H D (4.3-11.1) K/mcL RBC 4.75 (3.82-4.97) M/mcL Hgb 12.9 (11.5-15.4) g/dL Hct 39.5 (35.3-44.9) % MCV 83.2 (83.0-100.0) fL MCH 27.2 L (28.0-33.3) pg MCHC 32.7 (31.6-35.5) g/dL RDW 15.9 H (11.5-14.5) % Plt Count 359 (140-400) K/mcL MPV 11.3 (9.4-12.4) fL Immature Gran % 0.4 (0-4) % Seg Neutrophils % 72.0 % Lymphocytes % 19.7 % Monocytes % 6.0 % Eosinophils % 1.4 % Basophils % 0.5 % Neutrophils # 12.6 H (1.6-8.9) K/mcL Lymphocytes # 3.5 (0.6-4.6) K/mcL Monocytes # 1.1 (0.0-1.3) K/mcL Eosinophils # 0.3 (0.0-0.6) K/mcL Basophils # 0.1 (0.0-0.2) K/mcL Sodium 138 (136-145) mEq/L Potassium 3.6 (3.5-4.5) mEq/L Chloride 107 (98-109) mEq/L Carbon Dioxide 21 (19-29) mEq/L BUN 14 (7-20) mg/dL Creatinine 1.13 H (0.57-1.11) mg/dL Est GFR ( Amer) > 60 (> 60) Est GFR (Non-Af Amer) 54 L (> 60) BUN/Creatinine Ratio 12 (6-26) Glucose 88 (70-99) mg/dL Calculated Osmolality 286 (280-300) Calcium 9.0 (8.6-10.8) mg/dL Troponin I 0.00 (0-0.03) ng/mL - Radiology Data Radiology results reviewed: Yes I reviewed the patient's radiology results. - EKG Data EKG attestation: Yes I reviewed and interpreted this EKG. EKG shows normal: sinus rhythm Rate: tachycardia (Sinus tach ventricular rate 119 [place] 161 QRS [address] segment elevations or depressions, early re-pole in lead 3 seen on previous EKG in October and September.) Mcdonough/QRS: normal Interpretation: no acute changes - Core Measures AMI Core Measures Followed: Yes Heart Score - Score History: Moderately Suspicious EKG: Non Specific repolarisation Disturbance Age: Less than 45 Risk Factors: 1-2 risk factors Troponin: Less than normal limit HEART Score Total: 3
[2016-10-10 16:18] LABS: BUN/Creatinine Ratio 12 (6-26); Blood Urea Nitrogen 14 mg/dL (7-20); Carbon Dioxide 21 mEq/L (19-29); Chloride 107 mEq/L (98-109); Glucose 88 mg/dL (70-99); Osmolality,Calculated 286 (280-300); Potassium 3.6 mEq/L (3.5-4.5); Sodium 138 mEq/L (136-145); eGFR For African Americans > 60 (> 60); eGFR For Non-African Americans 54 (> 60)
--- NOTE | 2016-10-10 16:32 | Emergency Department Note ---
START Narrative - START START: I examined this patient and my medical decision-making was reviewed with the DIRECTOR OF COUNSELING/PA/Advanced Practice Nurse/Resident Physician. I agree with the documented findings, disposition and treatment plan as described except to the extent set forth below. ED attending note: I saw this Patient with the emergency medicine resident Dr. Peñaloza. Please see a copy of his note for details of the H&P, evaluation, management and disposition of this emergency Department patient. We independently had [id number] contact with the patient. Briefly: A 36-year-old obese female by wheelchair accompanied by her for chest pain. Patient was evaluated 48 hours ago at [facility] with a head CT and CT angiogram of chest labs and other evaluations. She was discharged home. Patient presents with identical symptoms of chest discomfort and near syncope. Patient's physical examination is otherwise benign. EKG shows no acute ischemic changes. Since the patient has returned with similar symptoms we will plan to admit her. Provided 30 minutes of critical care services for this patient disposition pending.
[2016-10-10] MEDS: Nitroglycerin 0.4 MG TAB.SUBL SL PRN ×2 (16:34→16:56)
--- NOTE | 2016-10-10 17:35 | Event Note ---
Date of Encounter: 10/10/16 Time of Encounter: 17:32 1. Near syncope, likely related to dehydration Continue IV fluids 2. Sinus tachycardia possibly secondary to thyrotoxicosis hyperthyroidism, on 10/07/2016 TSH of 0.0 27 was noticed, she was continued on her dose of 300 g of levothyroxine Repeat TSH, free T3, free T4, hold levothyroxine Consider beta blockers if not improving with fluids Consider cardiology consult, consider stress test if the patient becomes more stable 3. Leukocytosis, ordered a UA 4. Obesity Omeprazole for GI prophylaxis and subcutaneous heparin for due to prophylaxis. The patient will be admitted for observation. Full code. Time spent on this admission 45 minutes H&P to be completed by GUILLERMO Zhu
[2016-10-10] MEDS ORDERED: Naloxone 0.4 MG/ML INJ IVP PRN ×2 (17:44→21:17)
[2016-10-10] MEDS ORDERED: 0.9 % Sodium Chloride 1,000 ML IVC SCH ×2 (17:45→18:20)
[2016-10-10] MEDS ORDERED: 0.9 % Sodium Chloride 1,000 ML IVC ONE (18:13)
[2016-10-10] MEDS ORDERED: predniSONE 20 MG TABLET PO SCH (18:45)
[2016-10-10 19:12] LABS: Thyroid Stimulating Hormone 0.017 mcIU/mL (0.350-4.840); Triiodothyronine (T3) Free 2.63 pg/mL (1.71-3.71)
--- NOTE | 2016-10-10 19:22 | Internal Med History&Physical ---
Date of Encounter: 10/10/16 Time of Encounter: 17:30 Assessment and Plan (1) Sympathetic storming Current visit: Yes Status: Acute 1 patient has been experiencing tachycardia near syncopal episodes nausea and chest pain. She has had thyroidectomy in the past 2002. She has been on Synthroid and has had continued adjustments per her primary care physician. Presently TSH has been 0.027. She had a recent ultrasound of her neck 2016 Status post total thyroidectomy with no remnant thyroid tissue nor abnormal soft tissue in the operative bed. Suspect possible thyroid storming. We will recheck TSH T3-T4. Address sympathetic symptoms 2 we will give IV fluids 3 we will initiate propanolol 80 mg twice a day 4 we will give prednisone daily 5 -patient admits that she has been having difficulty with her thyroid in adjusting her thyroid medication. Presently she is on 300 Synthroid-patient would benefit from endocrine consult as outpatient for follow-up (2) DVT prophylaxis Current visit: No Status: Acute (3) Chest pain Current visit: Yes Status: Acute 1 she had a recent cardiac echo which was EF of 55%. We will continue to trend troponins.-I suspect these chest pains are related to her possible sympathetic storm. We will administer propanolol as well as give IV fluids and prednisone 2 continuous cardiac monitoring 3 consult cardiology as needed Qualifiers: Chest pain type: unspecified Qualified Code(s): R07.9 - Chest pain, unspecified (4) DVT prophylaxis Current visit: Yes Status: Acute Heparin subcutaneous Internal Medicine - H&P: HPI Chief complaint: near syncope CP Admitted From: Emergency Dept Plans for Post Hospital Care: Home History of present illness: Ms. Machuca is a 36 year old female past medical history of thyroid malignancy with a thyroidectomy 2002 hypothyroid depression and anxiety. Patient has been experiencing near syncope episodes over the past few days. She was just recently at the hospital and discharged yesterday. She states she was doing well and has been drinking plenty of fluids when she was driving her car and she felt lightheaded and experienced sharp 8 out of 10 crushing chest pain which was non-radiating she had associated symptoms of diaphoresis and nausea she did feel like she was going to pass out. She presented to the ER with the above complaints. Upon arrival she was tachycardic heart rate of 120 her blood pressure was 137 or 86 after stable 97. Lab was obtained which did show an elevated white count 17.5 it was 11.2 yesterday. Her creatinine is 1.13 was also elevated. Troponin was 0 chest x-ray did show no acute process. EKG was sinus tach with no ST-T wave abnormalities. He was given aspirin and nitroglycerin which did relieve her chest pain. She has been admitted for further workup and evaluation. Upon arrival to the floor patient declined having any more chest pain. However she did appear very dry with tacky mucous membranes. Her lung sounds are clear heart sounds were regular S1-S2 no rubs clicks, murmurs noted. She continued to be tachycardic blood pressure was down to 117 systolic. Her previous TSH was 0.027. She states her PCP has been titrating her Synthroid she is at 300 g daily. As well as she has been adjusting her antidepressants as recently as Wellbutrin. She has been experiencing some nausea she was tachycardic at 120 have some concerns of possible thyroid storm. We will recheck her TSH free T3-T4, stat. I did review this case with Dr. Van he does advise that patient be moved to a stepdown unit and closely monitored. We will initiate IV fluids as as well as start propanolol and prednisone. P Past Med Surg Social Fam HX - Past Medical History Medical history: cancer, CHF, migraine, thyroid disease, other Psychiatric history: anxiety, depression - Past Surgical History Surgical History: , thyroidectomy - Social History Smoking Status: Never smoker Smokeless Tobacco Status: No Alcohol use: none Drug use: none - Family History Father Living Status: Still Living Hx Family Cardiac Disorders: Yes (HTN, possible HI) Hx Family Respiratory Disorders: No Hx Family Cancer: No Hx Family GI Disorders: No Hx Family Endocrine Disorder: Yes (Possible DM) Hx Family Neuromuscular Disorders: No Hx Family Neurologic Disorders: No Hx Family HEENT Disorders: No Hx Family Autoimmune Disorders: No Mother Living Status: Hx Family Respiratory Disorders: Yes Internal Medicine - H&P: Meds Calcitriol [Rocaltrol] 0.5 mcg PO BID 04/27/15 [History] Ergocalciferol (VITAMIN D2) [Vitamin D2 (50,000 UNIT)] 50,000 unit PO 2XW [History] Levothyroxine [Synthroid] 300 mcg PO DAILY 04/27/15 [History] BuPROPion SR (12 HR) [Wellbutrin SR] 100 mg PO BID 10/08/16 [History] Calcium Carbonate [Calcium] 1,000 mg PO BID 10/08/16 [History] FLUoxetine HCl [Prozac] 20 mg PO DAILY 10/08/16 [History] Ferrous Sulfate [Iron] 325 mg PO QMWF 10/08/16 [History] Norgestrel-Ethinyl Estradiol [Bhx-Kkkfzsma-63 Tablet] 1 tab PO DAILY 10/08/16 [ History] Pnv with Ca,No.72/Iron/FA [Pnv Plus Multivit Tab] 1 tab PO DAILY [History] diazePAM [Valium] 2 mg PO BID 10/08/16 [History] Ibuprofen [Motrin] 400 mg PO Q6HR PRN 10/10/16 [History] Topiramate [Topiramate] 50 mg PO BID 10/10/16 [History] Allergies No Known Allergies Allergy (Verified 07/31/16 21:59) All Systems PM: A 10-system review of systems was performed and is negative for pertinent findings except as documented above in the HPI. - Constitutional Constitutional: lethargy, no chills, no fever(s), no night sweats - EENT Nose, mouth and throat: no dysphagia, no nasal discharge, no neck pain, no sore throat - Cardiovascular Cardiovascular ROS IM: chest pain, dyspnea - Respiratory Respiratory: no cough, no dyspnea, no wheezing, no excessive phlegm production - Gastrointestinal Gastrointestinal: nausea, no abdominal pain, no diarrhea, no hematemesis, no hematochezia, no melena, no vomiting - Genitourinary Genitourinary: no change in urinary stream, no dysuria, no flank pain, no hematuria - Musculoskeletal Musculoskeletal ROS IM: no numbness, no tingling - Integumentary Integumentary IM: no rash, no unusual bruising - Neurological Neurological ROS: no confusion, no convulsions, no focal weakness, no numbness, no tingling, no tremor(s) - Hematologic/Lymphatic Hematologic/Lymphatic: no easy bruising - Constitutional Vitals: Temp Pulse Resp BP Pulse Ox 98.1 F 90 17 113/69 96 10/10/16 17:55 10/10/16 18:18 10/10/16 17:55 10/10/16 18:18 10/10/16 17:55 General appearance: Present: A&O X 3, answers questions appropriately - Head Head exam: Present: atraumatic, normocephalic - Eye Eye exam: Present: PERRL, conjuntiva pink, sclera anicteric Pupils: Present: PERRL - Neck Neck exam general surgery: Present: supple, trachea midline. Absent: lymphadenopathy - Respiratory Respiratory exam: Present: CTAB. Absent: accessory muscle use, rales, rhonchi, wheezes - Cardiovascular Cardiovascular exam: Present: RRR, +S1, +S2. Absent: diastolic murmur, gallop, rubs, systolic murmur - GI/Abdominal GI/Abdominal exam: Present: normal bowel sounds, soft, no peritoneal signs. Absent: distended, tenderness - Extremities Exam Extremities exam: Present: warm, radial pulses palpable and symetrical. Absent : calf tenderness, cyanotic, pedal edema - Neurological Exam Neurological exam: Present: CN II-XII intact, oriented X3, no focal deficits. Absent: pronater drift, facial droop, speech deficit - Skin Skin exam: Present: dry, intact Internal Med - H&P Results - Labs CBC & Chem 7: 10/10/16 15:59 10/10/16 15:59 - EKG Data EKG shows normal: sinus rhythm - EKG Data Prior EKG available for review: yes When compared to previous EKG: there is no significant change - Diagnostic Studies Other Images Additional comments: Chest X-Ray 10/10/16 15:24 IMPRESSION: No acute process. D/ / Charles Espinoza MD / Charles Espinoza MD Interpreting Provider: Charles Espinoza MD
[2016-10-10] MEDS ORDERED: diazePAM 2 MG TABLET PO SCH (21:00)
[2016-10-10] MEDS ORDERED: Topiramate 25 MG TABLET PO SCH (21:00)
[2016-10-10] MEDS ORDERED: BuPROPion SR (12 HR) 100 MG TABLET PO SCH (21:00)
[2016-10-10] MEDS: Acetaminophen 325 MG TABLET PO PRN (22:15)
[2016-10-10] MEDS: 0.9 % Sodium Chloride 1,000 ML IVC SCH (22:16)
[2016-10-11 01:50] LABS: Basophils # 0.1 K/mcL (0.0-0.2); Basophils % 0.6 %; Eosinophils # 0.3 K/mcL (0.0-0.6); Eosinophils % 2.4 %; Hematocrit 34.5 % (35.3-44.9); Immature Granulocytes % 0.3 % (0-4); Mean Corpuscular HGB Conc 32.2 g/dL (31.6-35.5); Mean Corpuscular Hemoglobin 27.2 pg (28.0-33.3); Mean Corpuscular Volume 84.6 fL (83.0-100.0); Mean Platelet Volume 11.7 fL (9.4-12.4); Monocytes # 0.8 K/mcL (0.0-1.3); Neutrophils # 6.3 K/mcL (1.6-8.9); Platelet Count 274 K/mcL (140-400); Red Blood Count 4.08 M/mcL (3.82-4.97); Segmented Neutrophils % 54.7 %
[2016-10-11 01:52] LABS: Hemoglobin 11.1 g/dL (11.5-15.4)
[2016-10-11] MEDS: 0.9 % Sodium Chloride 1,000 ML IVC SCH (05:03)
[2016-10-11 05:19] LABS: Bilirubin,Urine Negative (Negative); Blood,Urine Trace (Negative); Clarity,Urine Clear (Clear); Color,Urine Yellow (Yellow); Glucose,Urine (UA) Normal (Normal); Ketones,Urine Negative (Negative); Leukocyte Esterase,Urine Negative (Negative); Nitrite,Urine Negative (Negative); PH,Urine 6.5 pH Units (5.0-8.0); Protein,Urine Negative (Neg-Trace); Specific Gravity,Urine 1.014 (1.010-1.025); Urobilinogen,Urine Normal (Normal)
[2016-10-11 05:22] LABS: Bacteria,Urine None Seen per hpf (None-Few); Hyaline Casts,Urine None Seen per lpf (None-Few); Squamous Epithelial Cell,Urine Many per lpf (None-Few); WBC,Urine 0-3 per hpf (0-3)
[2016-10-11] MEDS ORDERED: *HR* Enoxaparin 40 MG/0.4 ML SYRINGE SQ SCH (06:00)
[2016-10-11] MEDS ORDERED: FLUoxetine 20 MG CAPSULE PO SCH (09:00)
[2016-10-11] MEDS ORDERED: 0.9 % Sodium Chloride 1,000 ML IVC SCH (09:44)
[2016-10-11] MEDS: Topiramate 25 MG TABLET PO SCH ×2 (09:49→21:03)
[2016-10-11] MEDS: diazePAM 2 MG TABLET PO SCH ×2 (09:49→21:04)
[2016-10-11] MEDS: BuPROPion SR (12 HR) 100 MG TABLET PO SCH ×2 (09:49→21:04)
--- NOTE | 2016-10-11 09:49 | Internal Med Progress Note ---
Date of Encounter: 10/11/16 Time of Encounter: 09:49 - Assessment and plan (1) Chest pain Current Visit: Yes Status: Acute Assessment and plan: So far 3 negative troponin Pt did express significant FH of CAD--Father had MT in his 40' grand mother had MT in 50's, maternal uncles have heart problems she did have h/o non ischemic cardiomyopathy in the past too will get a stress test today mean while cont ASA and B ro.. will switch to Metoprolol upon d/c home Page to PCP Dr. Sotelo to discuss about this pt since her CP looks like more of an anxiety issue too Qualifiers: Chest pain type: unspecified Qualified Code(s): R07.9 - Chest pain, unspecified (2) Near syncope Current Visit: No Status: Resolved Assessment and plan: reviewed recent 2 D echo from 07/26/16 - LVEF 55%, normal left ventricular size and systolic function. There is evidence of mild diastolic dysfunction of the left ventricle. no acute changes on shelter monitor on Holter monitor at home (3) Diastolic CHF, chronic Current Visit: Yes Status: Chronic Assessment and plan: not in exacerbation will place her on B ro Metoprolol at low dose cont ASA Lasix PRN (4) Nonischemic cardiomyopathy Current Visit: No Status: Chronic (5) History of thyroid cancer Current Visit: No Status: Chronic (6) Thyroid crisis Current Visit: Yes Status: Acute Assessment and plan: Reviewed pt's TSH levels which significantly low, however her T3 and T4 levels are WNL at this point will cut down on her Synthroid dose 100mcg placed a call to PCP Dr. Sotelo to discuss about these changes and f/u instructions Qualifiers: Thyrotoxicosis type: unspecified thyrotoxicosis type Qualified Code(s): E05.91 - Thyrotoxicosis, unspecified with thyrotoxic crisis or storm (7) SAL (acute kidney injury) Current Visit: No Status: Acute Assessment and plan: improving cont gentle hydration SAL due to dehydration (8) Morbid obesity with BMI of 40.0-44.9, adult Current Visit: No Status: Chronic (9) DVT prophylaxis Current Visit: No Status: Acute Assessment and plan: on Lovenox - Subjective Interval history: Ms. Machuca is a 36 year old female past medical history of thyroid malignancy with a thyroidectomy 2003 hypothyroid depression and anxiety. Patient has been experiencing near syncope episodes over the past few days. She was just recently at the hospital and discharged yesterday. She states she was doing well and has been drinking plenty of fluids when she was driving her car and she felt lightheaded and experienced sharp 8 out of 10 crushing chest pain which was non-radiating she had associated symptoms of diaphoresis and nausea she did feel like she was going to pass out. Pt stated she still has intermittent chest pain 4/10 located sib sternal region , non radiating, sharp type of pain, aggravating with movements. No N/ V. No abd pain. No fever / chills. SOB is better today - Constitutional Vitals: Temp Pulse Resp BP Pulse Ox 97.7 F 75 18 135/81 99 10/11/16 06:56 10/11/16 06:56 10/11/16 06:56 10/11/16 06:56 10/11/16 06:56 General appearance: Present: A&O X 3, no acute distress, answers questions appropriately - Head Head exam: Present: atraumatic, normal inspection - Respiratory Respiratory exam: Present: decreased breath sounds, wheezes. Absent: rales, respiratory distress, rhonchi - Cardiovascular Cardiovascular exam: Present: RRR, +S1, +S2. Absent: systolic murmur - GI/Abdominal GI/Abdominal exam: Present: distended, soft. Absent: rebound, rigid - Neurological Exam Neurological exam: Present: alert, oriented X3 - Psychiatric Psychiatric exam: Present: anxious Internal Medicine: Result - Labs CBC & Chem 7: 10/11/16 01:40 10/10/16 15:59 Labs: Short CBC 10/11/16 Range/Units 01:40 WBC 11.4 H (4.3-11.1) K/mcL Hgb 11.1 L D (11.5-15.4) g/dL Hct 34.5 L (35.3-44.9) % Plt Count 274 (140-400) K/mcL Neutrophils # 6.3 (1.6-8.9) K/mcL Cardiac Enzymes 10/11/16 10/11/16 Range/Units 01:40 05:51 Troponin I 0.00 0.00 (0-0.03) ng/mL Urine 10/11/16 Range/Units 05:11 Urine Color Yellow (Yellow) Urine Clarity Clear (Clear) Urine pH 6.5 (5.0-8.0) pH Units Ur Specific [place] 1.014 (1.010-1.025) Urine Protein Negative (Neg-Trace) mg/dL Urine Glucose (UA) Normal (Normal) mg/dL Consult Discharge Plan - Plan Referrals: Diana Sotelo DO [Primary Care Provider] -
[2016-10-11] MEDS: FLUoxetine 20 MG CAPSULE PO SCH (09:50)
[2016-10-11] MEDS: Metoprolol XL (24 HR) Succ 25 MG TAB.ER.24H PO SCH (10:45)
--- NOTE | 2016-10-11 11:39 | Electrocardiograph Report ---
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
--- NOTE | 2016-10-11 11:41 | Electrocardiograph Report ---
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
[2016-10-11] MEDS ORDERED: Magnesium Sulfate 2 GM in D5% in Water 100 ML IVPB ONE (14:25)
[2016-10-11] MEDS: Aspirin Enteric Coated 81 MG Tablet PO SCH (17:20)
[2016-10-11] MEDS: Acetaminophen 325 MG TABLET PO PRN (21:35)
[2016-10-12] MEDS ORDERED: Regadenoson 0.4 MG/5 ML SYRINGE IVP ONE (06:19)
[2016-10-12] MEDS: Acetaminophen 325 MG TABLET PO PRN (06:52)
[2016-10-12 07:23] VITALS: BP 133/79
[2016-10-12 07:53] LABS: BUN/Creatinine Ratio 9 (6-26); Blood Urea Nitrogen 9 mg/dL (7-20); Calcium 7.9 mg/dL (8.6-10.8); Carbon Dioxide 21 mEq/L (19-29); Chloride 108 mEq/L (98-109); Glucose 92 mg/dL (70-99); Osmolality,Calculated 286 (280-300); Potassium 3.5 mEq/L (3.5-4.5); Sodium 139 mEq/L (136-145); eGFR For African Americans > 60 (> 60); eGFR For Non-African Americans > 60 (> 60)
[2016-10-12 08:04] LABS: Basophils % 0.4 %; Eosinophils # 0.3 K/mcL (0.0-0.6); Eosinophils % 2.4 %; Hematocrit 36.3 % (35.3-44.9); Hemoglobin 11.7 g/dL (11.5-15.4); Immature Granulocytes % 0.3 % (0-4); Lymphocytes # 2.7 K/mcL (0.6-4.6); Lymphocytes % 26.4 %; Mean Corpuscular HGB Conc 32.2 g/dL (31.6-35.5); Mean Corpuscular Volume 83.6 fL (83.0-100.0); Monocytes # 0.7 K/mcL (0.0-1.3); Monocytes % 6.7 %; Neutrophils # 6.5 K/mcL (1.6-8.9); Platelet Count 291 K/mcL (140-400); Red Blood Count 4.34 M/mcL (3.82-4.97); Red Cell Distribution Width 15.9 % (11.5-14.5); Segmented Neutrophils % 63.8 %
[2016-10-12] MEDS: Aspirin Enteric Coated 81 MG Tablet PO SCH (09:21)
[2016-10-12] MEDS: Metoprolol XL (24 HR) Succ 25 MG TAB.ER.24H PO SCH (09:22)
[2016-10-12] MEDS: diazePAM 2 MG TABLET PO SCH (09:22)
[2016-10-12] MEDS: Topiramate 25 MG TABLET PO SCH (09:22)
[2016-10-12] MEDS: FLUoxetine 20 MG CAPSULE PO SCH (09:22)
[2016-10-12] MEDS: BuPROPion SR (12 HR) 100 MG TABLET PO SCH (09:22)
--- NOTE | 2016-10-12 09:54 | Discharge Summary ---
Date of Encounter: 10/12/16 Time of Encounter: 09:44 - Discharge Diagnosis (1) Chest pain Priority: Primary Status: Acute Qualifiers: Chest pain type: unspecified Qualified Code(s): R07.9 - Chest pain, unspecified (2) Near syncope Priority: Primary Status: Resolved (3) Diastolic CHF, chronic Priority: Secondary Status: Chronic (4) Nonischemic cardiomyopathy Priority: Secondary Status: Chronic (5) History of thyroid cancer Priority: Secondary Status: Chronic (6) Thyroid crisis Priority: Secondary Status: Acute Qualifiers: Thyrotoxicosis type: unspecified thyrotoxicosis type Qualified Code(s): E05.91 - Thyrotoxicosis, unspecified with thyrotoxic crisis or storm (7) SAL (acute kidney injury) Priority: Secondary Status: Acute (8) Morbid obesity with BMI of 40.0-44.9, adult Priority: Secondary Status: Chronic - Discharge Medications Prescriptions: Aspirin Enteric Coated [Aspirin EC] 81 mg PO DAILY #30 Metoprolol XL (24 HR) Succ [Toprol Xl] 12.5 mg PO DAILY #30 Home Medications: Calcitriol [Rocaltrol] 0.5 mcg PO BID 04/27/15 [History] Ergocalciferol (VITAMIN D2) [Vitamin D2 (50,000 UNIT)] 50,000 unit PO 2XW [History] BuPROPion SR (12 HR) [Wellbutrin SR] 100 mg PO BID 10/08/16 [History] Calcium Carbonate [Calcium] 1,000 mg PO BID 10/08/16 [History] FLUoxetine HCl [Prozac] 20 mg PO DAILY 10/08/16 [History] Ferrous Sulfate [Iron] 325 mg PO QMWF 10/08/16 [History] Norgestrel-Ethinyl Estradiol [Iab-Dkjfdkpt-51 Tablet] 1 tab PO DAILY 10/08/16 [ History] Pnv with Ca,No.72/Iron/FA [Pnv Plus Multivit Tab] 1 tab PO DAILY [History] diazePAM [Valium] 2 mg PO BID 10/08/16 [History] Ibuprofen [Motrin] 400 mg PO Q6HR PRN 10/10/16 [History] Topiramate 50 mg PO BID 10/10/16 [History] Aspirin Enteric Coated [Aspirin EC] 81 mg PO DAILY #30 10/12/16 [Rx] Levothyroxine [Synthroid] 300 mcg PO DAILY #0 10/12/16 [Rx] Metoprolol XL (24 HR) Succ [Toprol Xl] 12.5 mg PO DAILY #30 10/12/16 [Rx] Allergies/Adverse Reactions: Allergies No Known Allergies Allergy (Verified 07/31/16 21:59) Procedures/tests Complete & Pending: Procedures Performed prior 72 hours Category Date Time Status NM michael perf SPECT multi [NM] Routine Exams 10/11/16 09:43 Taken EKG [ECG 12 lead ECG] [ECG] Stat Y 10/10/16 17:12 Completed SP pharm nuclear stress Routine Y 10/12/16 07:30 Completed Date of admission: 10/10/16 17:09 Primary care physician: Earl Shoemaker - Patient Status Disposition: Home, Self-Care Condition: Good Overall status at discharge: patient is back to baseline - Discharge Instructions Follow Up With: Diana Sotelo DO [Primary Care Provider] - 10/15/16 9:30 am () Additional Instructions: Please skip 1 dose after every 3days until you see your PCP Dr. Sotelo - Diet and Activity Activity: increase activity as tolerated Diet: low salt diet Hospital course: Ms. Machuca is a 36 year old female past medical history of thyroid malignancy with a thyroidectomy 2003 hypothyroid depression and anxiety. Patient has been experiencing near syncope episodes over the past few days. She was just recently at the hospital and discharged yesterday. She states she was doing well and has been drinking plenty of fluids when she was driving her car and she felt lightheaded and experienced sharp 8 out of 10 crushing chest pain which was non-radiating she had associated symptoms of diaphoresis and nausea she did feel like she was going to pass out. Pt was admitted here for acute chest pain and SAL with dehydration. Pt was placed on manager department and trended on her troponin. All her troponin came back as negative, no acute EKG changes noticed. Due to her significant FH of CAD and multiple risk factors we did cardiac stress test which came back as negative for any ischemia. Also noticed pt does have significantly low TSH, and concern for thyroid crisis. Her T3 and T4 are WNL, however with total thyoridectomy history she does need levothyroixine too. Spoke to PCP Dr. Sotelo who recommend to skip 1 dose a week, but pt already had been doing this from last 2 months and her TSH levels are still low. So I requested the pt skip 1 dose after every 3days until you see your PCP Dr. Sotelo. - Time Spent with Patient Total time spent providing and/or coordinating discharge services: - Constitutional Vitals: Temp Pulse Resp BP Pulse Ox 98.0 F 80 16 133/79 96 10/12/16 07:23 10/12/16 07:23 10/12/16 07:23 10/12/16 07:23 10/12/16 07:23 General appearance: Present: A&O X 3, no acute distress, answers questions appropriately - Head Head exam: Present: atraumatic, normal inspection - Neck Neck exam general surgery: Present: supple. Absent: tenderness - Respiratory Respiratory exam: Present: decreased breath sounds. Absent: rales, respiratory distress, stridor, wheezes - Cardiovascular Cardiovascular exam: Present: RRR, +S1, +S2. Absent: systolic murmur - GI/Abdominal GI/Abdominal exam: Present: distended, soft. Absent: firm, guarding, rebound, tenderness - Extremities Exam Extremities exam: Absent: calf tenderness, pedal edema, tenderness - Psychiatric Psychiatric exam: Present: normal affect, normal mood
--- NOTE | 2016-10-14 15:01 | Nuclear Medicine Stress Report ---
Regadenoson Nuclear 2 day Name: Maye Machuca Date of Study: 10/11/2016 Date: 1980 Ht: 65.0 in Medical Record#: [id number] Age: 36 Wt: 267.0 lb Gender: Female Order #: [id number] Location: [facility] Room: Supervising Provider: Patrick Knox CNP Reading Physician: Adelaide Santiago DO Ordering Physician: Hyacinth Donahue CNP Primary Care Physician: Diana Sotelo DO Stress Technologist: Yahir Higgins, CERTIFIED PROCEDURAL CODER, [facility] [place] Block Setter: Turner Cali Indications: Chest Pain Impression: Perfusion imaging was negative for ischemia or infarct. Pharmacologic ECG was negative for ischemia at the level of heart rate achieved. Gated EF = 64%. Stress Test Summary: Stress Test Type: Pharmacologic Regadenoson 0.4mg/5ml given IV Baseline Information: Initial Heart Rate: 110 Blood Pressure: 124/82 Stress Information: Stress Time: 4 min 00 sec Test Terminated Due to (primary): As per protocol Maximum Blood Pressure: 118/74 Maximum Heart Rate: 113 Percent Maximum Heart Rate Achieved: 62 Double Product: [id number] METS Reached: 1 Symptoms: Shortness of breath Nuclear Summary: SPECT myocardial perfusion imaging using Tc99m Sestamibi given intravenously was performed at rest and following cardiac stress testing. The resting images were obtained following initial dose of 34.2 mCi. Following stress an additional dose of 34.9 mCi was given at peak exercise or 30 seconds post regadenoson infusion. Medication Given: Time Medication Dose Units Route Findings: Stress Note * Resting ECG demonstrated normal sinus rhythm. * Pharmacologic stress ECG is negative for ischemia at level of heart rate achieved. * No arrhythmias were noted during stress. * Patient had no chest pain during stress. Hemodynamic responses * Normal hemodynamic responses to pharmacologic stress. Study Quality * Study quality was fair. Gated EF % * Gated EF = 64%. Left Ventricle * The left ventricle is not dilated. TID * No evidence of transient ischemic dilatation. Lung Uptake * There is no evidence of increase lung uptake. NORMALS * Normal wall motion. PERFUSION * Homogeneous rest and stress radiotracer uptake without evidence for ischemia or infarct. Updated by Adelaide Santiago on 10/12/2016 10:05:54 AM electronically signed on 10/12/2016 10:06:39 AM with status of Final
== END 2016-10-12 12:20 | disposition home or self-care (01) ==
LOC: EMEROO 15:19 → 3BNU 15:19 → 2NNU 20:10 → 3BNU 10-11 11:58
PROVIDERS: ADMIT Registered Nurse; ATTEND Registered Nurse

== ENCOUNTER 2019-05-12 01:59 | Inpatient (IN) ==
[2019-05-12 02:54] LABS: Bilirubin,Urine Negative (Negative); Blood,Urine Negative (Negative); Clarity,Urine Clear (Clear); Color,Urine Yellow (Yellow); Glucose,Urine (UA) Normal (Normal); Ketones,Urine Negative (Negative); Leukocyte Esterase,Urine Negative (Negative); Nitrite,Urine Negative (Negative); Protein,Urine Negative (Neg-Trace); Specific Gravity,Urine 1.009 (1.010-1.025); Urobilinogen,Urine Normal (Normal)
[2019-05-12 03:03] LABS: Amphetamine Screen,Urine Negative ng/mL (Cutoff=1000); Barbiturate Screen,Urine Negative ng/mL (Cutoff=200); Benzodiazepines Screen,Urine Negative ng/mL (Cutoff=200); Cannabinoid Screen,Urine Negative ng/mL (Cutoff = 50); Cocaine Screen,Urine Negative ng/mL (Cutoff= 300); Opiate Screen,Urine Negative ng/mL (Cutoff=300); Phencyclidine Screen,Urine Negative ng/mL (Cutoff=25)
[2019-05-12 03:07] LABS: Basophils # 0.1 K/mcL (0.0-0.2); Basophils % 0.5 %; Eosinophils # 0.4 K/mcL (0.0-0.6); Eosinophils % 3.3 %; Hematocrit 40.8 % (35.3-44.9); Hemoglobin 12.3 g/dL (11.5-15.4); Immature Granulocytes % 0.5 % (0-4); Lymphocytes # 2.5 K/mcL (0.6-4.6); Mean Corpuscular HGB Conc 30.1 g/dL (31.6-35.5); Mean Corpuscular Hemoglobin 25.3 pg (28.0-33.3); Mean Platelet Volume 10.7 fL (9.4-12.4); Monocytes # 0.7 K/mcL (0.0-1.3); Neutrophils # 9.5 K/mcL (1.6-8.9); Platelet Count 393 K/mcL (140-400); Red Blood Count 4.86 M/mcL (3.82-4.97); Red Cell Distribution Width 15.9 % (11.5-14.5); Segmented Neutrophils % 71.7 %; White Blood Count 13.2 K/mcL (4.3-11.1)
[2019-05-12 03:34] LABS: Acetaminophen < 10 mcg/mL (10-20); BUN/Creatinine Ratio 20 (6-26); Blood Urea Nitrogen 14 mg/dL (6-20); Calcium 7.9 mg/dL (8.6-10.3); Carbon Dioxide 23 mEq/L (23-29); Chloride 103 mEq/L (98-107); Ethanol < 10 mg/dL (Less than 10); Glucose 154 mg/dL (70-105); Osmolality,Calculated 286 (280-300); Potassium 3.8 mEq/L (3.5-5.1); Salicylate < 2.5 mg/dL (15.0-30.0); Sodium 136 mEq/L (136-145); eGFR For African Americans > 60 (> 60); eGFR For Non-African Americans > 60 (> 60)
[2019-05-12] MEDS ORDERED: *HR* LORazepam 1 MG TABLET PO ONE (04:04)
[2019-05-12 06:54] LABS: Thyroid Stimulating Hormone 49.925 mcIU/mL (0.340-5.600)
[2019-05-12] MEDS ORDERED: haloperidoL 5 MG TABLET PO PRN (08:13)
[2019-05-12] MEDS ORDERED: traZODone 50 MG TABLET PO PRN (08:13)
[2019-05-12] MEDS ORDERED: Acetaminophen 325 MG TABLET PO PRN (08:13)
[2019-05-12] MEDS ORDERED: *HR* LORazepam 1 MG TABLET PO PRN (08:13)
[2019-05-12] MEDS ORDERED: *HR* LORazepam 2 MG/ML VIAL IM PRN (08:13)
[2019-05-12] MEDS ORDERED: Haloperidol Lactate 5 MG/ML VIAL IM PRN (08:13)
[2019-05-12] MEDS ORDERED: MOM Conc 10 ML UD.LIQ PO PRN (08:13)
[2019-05-12] MEDS ORDERED: Mag Hydrox/Al Hydrox/Simeth 30 ML UDC PO PRN (08:13)
[2019-05-12] MEDS ORDERED: clonazePAM 1 MG TABLET PO PRN (09:50)
[2019-05-12] MEDS: hydrOXYzine pamoate 25 MG CAPSULE PO PRN (20:44)
[2019-05-12] MEDS: traZODone 50 MG TABLET PO SCH (20:44)
[2019-05-13] MEDS ORDERED: Ibuprofen 800 MG TABLET PO ONE (13:17)
[2019-05-13] MEDS: hydrOXYzine pamoate 25 MG CAPSULE PO PRN (20:33)
[2019-05-13] MEDS: traZODone 50 MG TABLET PO SCH (20:33)
[2019-05-14 07:42] VITALS: BP 177/104
[2019-05-14] MEDS ORDERED: traZODone 50 MG TABLET PO SCH (21:00)
== END 2019-05-14 11:40 | disposition home or self-care (01) | DRG 885 ==
LOC: EMEROOARM 01:59 → 1ANU 08:08
PROVIDERS: ADMIT Psychiatry & Neurology Psychiatry; ATTEND Psychiatry & Neurology Psychiatry

== ENCOUNTER 2019-11-15 13:51 | Observation (INO) ==
[2019-11-15] MEDS ORDERED: Ondansetron 4 MG/2 ML VIAL IVP ONE (14:12)
[2019-11-15] MEDS ORDERED: 0.9 % Sodium Chloride 1,000 ML IVC ONE (14:12)
[2019-11-15 14:30] LABS: Basophils # 0.1 K/mcL (0.0-0.2); Basophils % 0.6 %; Eosinophils # 0.6 K/mcL (0.0-0.6); Eosinophils % 4.1 %; Hemoglobin 11.7 g/dL (11.5-15.4); Immature Granulocytes % 0.7 % (0-4); Lymphocytes # 2.2 K/mcL (0.6-4.6); Lymphocytes % 16.3 %; Mean Corpuscular HGB Conc 30.8 g/dL (31.6-35.5); Mean Corpuscular Hemoglobin 24.7 pg (28.0-33.3); Mean Corpuscular Volume 80.3 fL (83.0-100.0); Mean Platelet Volume 11.2 fL (9.4-12.4); Monocytes # 0.9 K/mcL (0.0-1.3); Monocytes % 6.6 %; Neutrophils # 9.9 K/mcL (1.6-8.9); Platelet Count 439 K/mcL (140-400); Red Blood Count 4.73 M/mcL (3.82-4.97); Red Cell Distribution Width 17.5 % (11.5-14.5); Segmented Neutrophils % 71.7 %; White Blood Count 13.8 K/mcL (4.3-11.1)
[2019-11-15 14:51] LABS: Alanine Aminotransferase 37 Units/L (7-52); Albumin 4.4 g/dL (3.5-5.7); Albumin/Globulin Ratio 1.2 (1.1-2.2); Alkaline Phosphatase 79 Units/L (34-104); Aspartate Amino Transferase 20 Units/L (13-39); BUN/Creatinine Ratio 15 (6-26); Bilirubin,Direct 0.1 mg/dL (0.0-0.2); Bilirubin,Indirect 0.2 mg/dL (0.0-1.0); Bilirubin,Total 0.3 mg/dL (0.3-1.0); Blood Urea Nitrogen 12 mg/dL (6-20); Calcium 7.7 mg/dL (8.6-10.3); Carbon Dioxide 25 mEq/L (23-29); Chloride 102 mEq/L (98-107); Globulin 3.6 g/dL (2.4-3.5); Glucose 137 mg/dL (70-105); Lipase 21 Units/L (11-82); Magnesium 1.8 mg/dL (1.6-2.6); Osmolality,Calculated 292 (280-300); Potassium 3.7 mEq/L (3.5-5.1); Sodium 140 mEq/L (136-145); Troponin I < 0.03 ng/mL (< 0.04); eGFR For African Americans > 60 (> 60); eGFR For Non-African Americans > 60 (> 60)
[2019-11-15 15:04] LABS: Thyroid Stimulating Hormone 0.274 mcIU/mL (0.340-5.600)
[2019-11-15 15:26] LABS: Adenovirus Not Detected (Not Detect); Coronavirus 229E Not Detected (Not Detect); Coronavirus HKU1 Not Detected (Not Detect)
[2019-11-15 15:27] LABS: Bordetella Pertussis Not Detected (Not Detect); Chlamydophila pneumoniae Not Detected (Not Detect); Coronavirus NL63 Not Detected (Not Detect); Coronavirus OC43 Not Detected (Not Detect); Human Metapneumovirus Not Detected (Not Detect); Human Rhinovirus/Enterovirus DETECTED (Not Detect); Influenza A Subtype 2009 H1 Not Detected (Not Detect); Influenza B Not Detected (Not Detect); Mycoplasma pneumoniae Not Detected (Not Detect); Parainfluenza Virus 1 Not Detected (Not Detect); Parainfluenza Virus 2 Not Detected (Not Detect); Parainfluenza Virus 3 Not Detected (Not Detect); Parainfluenza Virus 4 Not Detected (Not Detect); Respiratory Syncytial Virus Not Detected (Not Detect); SARS-CoV-2 Not Detected (Not Detect)
[2019-11-15 15:33] LABS: Bilirubin,Urine Negative (Negative); Blood,Urine Negative (Negative); Clarity,Urine Clear (Clear); Color,Urine Light-Yellow (Yellow); Glucose,Urine (UA) Normal (Normal); Ketones,Urine Negative (Negative); Leukocyte Esterase,Urine Negative (Negative); Nitrite,Urine Negative (Negative); Protein,Urine Negative (Neg-Trace); Specific Gravity,Urine 1.019 (1.010-1.025); Urobilinogen,Urine Normal (Normal)
[2019-11-15] MEDS ORDERED: Naloxone 0.4 MG/ML INJ IVP PRN (16:32)
[2019-11-15] MEDS ORDERED: Ondansetron ODT 4 MG TAB.RAPDIS SL PRN (16:32)
[2019-11-15] MEDS ORDERED: D5% in Water 1,000 ML IVC PRN (17:10)
[2019-11-15] MEDS ORDERED: *HR* Dextrose 50 % in Water (Vial) 50 ML VIAL IVP PRN (17:10)
[2019-11-15] MEDS ORDERED: Dextrose Gel 15 GM/37.5 ML TUBE PO PRN ×2 (17:10)
[2019-11-15] MEDS ORDERED: Ipratropium/Albuterol Neb 3 ML IH PRN (17:11)
[2019-11-15] MEDS ORDERED: Acetaminophen 325 MG TABLET PO PRN (17:11)
[2019-11-15] MEDS: atenoloL 25 MG TABLET PO SCH (18:02)
[2019-11-15 18:28] LABS: Triiodothyronine (T3) Free 3.41 pg/mL (2.50-3.90)
[2019-11-15] MEDS ORDERED: Insulin LISPRO 300 UNITS/3 ML VIAL SQ SCH (21:00)
[2019-11-15] MEDS ORDERED: Benzonatate 100 MG CAPSULE PO PRN (21:41)
[2019-11-15] MEDS ORDERED: Melatonin 3 MG TABLET PO ONE (23:37)
[2019-11-16 03:29] LABS: Hematocrit 32.7 % (35.3-44.9); Mean Corpuscular Hemoglobin 24.2 pg (28.0-33.3); Mean Corpuscular Volume 80.7 fL (83.0-100.0); Mean Platelet Volume 11.5 fL (9.4-12.4); Platelet Count 365 K/mcL (140-400); Red Blood Count 4.05 M/mcL (3.82-4.97); Red Cell Distribution Width 17.9 % (11.5-14.5); White Blood Count 13.4 K/mcL (4.3-11.1)
[2019-11-16 03:31] LABS: Hemoglobin 9.8 g/dL (11.5-15.4)
[2019-11-16 03:52] LABS: BUN/Creatinine Ratio 17 (6-26); Blood Urea Nitrogen 12 mg/dL (6-20); Calcium 7.3 mg/dL (8.6-10.3); Carbon Dioxide 23 mEq/L (23-29); Chloride 101 mEq/L (98-107); Glucose 150 mg/dL (70-105); Osmolality,Calculated 287 (280-300); Potassium 3.7 mEq/L (3.5-5.1); Sodium 137 mEq/L (136-145); eGFR For African Americans > 60 (> 60); eGFR For Non-African Americans > 60 (> 60)
[2019-11-16] MEDS ORDERED: Acetaminophen/Aspirin/Caffeine TABLET PO ONE (05:56)
[2019-11-16] MEDS: atenoloL 25 MG TABLET PO SCH (08:37)
[2019-11-16] MEDS: Insulin LISPRO 300 UNITS/3 ML VIAL SQ SCH ×2 (08:37→12:16)
[2019-11-16] MEDS ORDERED: Ibuprofen 800 MG TABLET PO ONE (10:46)
[2019-11-16 11:08] VITALS: BP 129/85
== END 2019-11-16 13:59 | disposition home or self-care (01) ==
LOC: EMEROOARM 13:51 → 2ANU 13:51 → SUATTDRO 16:49 → 2ANU 17:14
PROVIDERS: ADMIT Family Medicine; ATTEND Family Medicine